=== PATIENT | female | born 1955 ===

== ENCOUNTER 2022-10-13 05:45 | Day surgery (SDC) | payer OTHER ==
[~2022-10-13] VITALS: Ht 160 cm; Wt 76.7 kg
[~2022-10-13 05:45] MED LIST: IRBESAR PO; TOPROL XL25 M1 PO
== END 2022-10-13 14:10 | disposition home or self-care (01) ==
LOC: CIR.AMB 05:45
PROVIDERS: ATTEND Surgery
DX: L72.0 Epidermal cyst (principal); R22.2 Localized swelling, mass and lump, trunk; Z20.822 Contact with and (suspected) exposure to COVID-19; I10 Essential (primary) hypertension